=== PATIENT | male | born 1985 ===

== ENCOUNTER 2020-10-21 09:19 | Emergency (ER) | payer OTHER | END 2020-10-21 12:44 | disposition home or self-care (01) | LOC: ER1 09:19 | DX: U07.1 COVID-19 (principal) | CPT/HCPCS: 99284; U0002 ==

== ENCOUNTER 2020-10-25 13:01 | Emergency (ER) | payer OTHER ==
[~2020-10-25] VITALS: Ht 175.3 cm; Wt 127.0 kg
[2020-10-25 17:00] LABS: HEMOGLOBIN 15.7 gm/dl (14.0-17.5); RED BLOOD COUNT 5.21 M/UL (4.20-5.50); WHITE BLOOD COUNT 5.7 K/UL (4.5-11.0)
[2020-10-25 17:31] LABS: BUN/CREATININE RATIO 14 (0-10)
[2020-10-25] MEDS ORDERED: IBUPROFEN800 MG PO (18:49)
[2020-10-25] MEDS ORDERED: PROAIR HFA8.5 GM INH (18:49)
[2020-10-25] MEDS ORDERED: ONDANSETRON ODT4 MG SL (18:49)
[2020-10-25] MEDS ORDERED: MUCINEX DM ER1 EACH PO (18:49)
== END 2020-10-25 22:09 | disposition home or self-care (01) ==
LOC: ER1 13:01
PROVIDERS: Physician Assistant Medical
DX: Z23 Encounter for immunization (principal); U07.1 COVID-19; J12.82 Pneumonia due to coronavirus disease 2019
CPT/HCPCS: 71045; 80053; 83605; 85025; 87040; 99284; M0243

== ENCOUNTER → 2021-03-27 | Outpatient (CLI) | payer OTHER ==
[~2021-03-27] MED LIST: IBUPROFEN800 MG PO; MUCINEX DM ER1 EACH PO; ONDANSETRON ODT4 MG SL; PROAIR HFA8.5 GM INH
== END ==
LOC: EXRD 08:59
DX: R19.00 Intra-abdominal and pelvic swelling, mass and lump, unspecified site (principal); K80.20 Calculus of gallbladder without cholecystitis without obstruction
CPT/HCPCS: 76700